=== PATIENT | female | born 1955 | race Native Hawaiian/Other Pacific Islander ===

== ENCOUNTER 2017-11-04 10:01 | Emergency (ER) | payer OTHER ==
[~2017-11-04] VITALS: Ht 157.5 cm; Wt 68.0 kg
[2017-11-04 10:05] VITALS: TEMP 97.3
[2017-11-04 11:08] VITALS: BP 144/84
== END 2017-11-04 11:08 | disposition home or self-care (01) ==
LOC: ED 10:01
DX: S61.313A Laceration without foreign body of left middle finger with damage to nail, initial encounter (principal); W31.82XA Contact with other commercial machinery, initial encounter; Y93.89 Activity, other specified; Y92.63 Factory as the place of occurrence of the external cause; Y99.0 Civilian activity done for income or pay
CPT/HCPCS: 99283

== ENCOUNTER 2017-11-07 15:39 | Emergency (ER) | payer OTHER ==
[~2017-11-07] VITALS: Ht 157.5 cm; Wt 68.0 kg
[2017-11-07 16:30] VITALS: BP 129/88; TEMP 97.5
== END 2017-11-07 16:29 | disposition home or self-care (01) ==
LOC: ED 15:39
DX: Z48.01 Encounter for change or removal of surgical wound dressing (principal)

== ENCOUNTER 2018-09-08 08:50 | Outpatient (CLI) | payer BC | END 2018-09-08 19:47 | disposition home or self-care (01) | LOC: RAD 08:50 | DX: M85.89 Other specified disorders of bone density and structure, multiple sites (principal) ==

== ENCOUNTER 2018-12-05 11:40 | Outpatient (CLI) | payer BC | END 2018-12-05 20:01 | disposition home or self-care (01) | LOC: RAD 11:40 | DX: M85.89 Other specified disorders of bone density and structure, multiple sites (principal) ==

== ENCOUNTER 2019-01-13 16:24 | Emergency (ER) | payer BC ==
[~2019-01-13] VITALS: Ht 157.5 cm; Wt 68.0 kg
[2019-01-13 17:04] LABS: PLATELET COUNT 249 K/uL (152-353)
[2019-01-13 17:19] LABS: POTASSIUM 3.4 mmol/L (3.6-5.2); SODIUM 144 mmol/L (136-145)
[2019-01-13 19:00] VITALS: BP 154/82; TEMP 98
== END 2019-01-13 19:15 | disposition home or self-care (01) ==
LOC: ED 16:24
PROVIDERS: Emergency Medicine
DX: T67.5XXA Heat exhaustion, unspecified, initial encounter (principal); X30.XXXA Exposure to excessive natural heat, initial encounter
CPT/HCPCS: 80053; 82550; 83874; 84484; 85027; 93005; 96360; 96361; 96375; 99284; J2405